=== PATIENT | female | born 1945 | race Two or more races ===

== ENCOUNTER 2023-06-08 12:00 | Emergency (ER) | payer OTHER ==
[~2023-06-08] VITALS: Ht 152.4 cm; Wt 63.5 kg
== END 2023-06-08 19:29 ==
LOC: ER 12:00
DX: N39.0 Urinary tract infection, site not specified (principal); R30.0 Dysuria; I10 Essential (primary) hypertension; Z88.2 Allergy status to sulfonamides

== ENCOUNTER 2025-02-18 11:15 | Emergency (ER) | payer OTHER ==
[~2025-02-18] VITALS: Ht 162.6 cm; Wt 70.8 kg
[2025-02-18] MEDS ORDERED: VALSARTAN160 MG PO (12:11)
[2025-02-18] MEDS ORDERED: KETOROLAC TROMETHAMINE 60 MG VIAL IM ONE (12:39)
[2025-02-18] MEDS ORDERED: KETOROLAC TROMETHAMINE 60 MG VIAL IM STA (12:55)
[2025-02-18 13:24] LABS: PH,URINE 6.5 (5.0-8.0); URINE APPEARANCE Clear; URINE BILIRRUBIN Negative (NEGATIVE); URINE BLOOD Negative; URINE COLOR Yellow; URINE GLUCOSE Negative (NEGATIVE); URINE KETONE Negative (NEGATIVE); URINE LEUKOCYTE Negative; URINE NITRATE Negative; URINE PROTEIN Negative (NEGATIVE)
[2025-02-18 13:25] LABS: HEMATOCRIT 39.2 % (36.0-45.00); HEMOGLOBIN 13.1 g/dL (12.0-15.00); MEAN CELL VOLUME 82.3 fL (80.00-100.00); MEAN CORPUSCULAR HEMOGLOBIN 27.4 pg (27.00-32.0); MEAN CORPUSCULAR HGB CONC 33.3 g/dl (32.0-36.0); PLATELET COUNT 194 K/uL (150-450); RED BLOOD COUNT 4.77 M/uL (4.00-6.00); RED CELL DISTRIBUTION WIDTH 15.3 % (11.5-14.5)
[2025-02-18 13:28] LABS: URINE BACTERIA 673.1 uL (0.0-1933); URINE EPITHELIAL CELLS 106.7 uL (0.0-38.8); URINE RBC 24.8 uL (0.0-20.8); URINE WBC 6.3 uL (0.0-23.2)
[2025-02-18 13:52] LABS: CALCIUM 9.3 mg/dL (8.5-10.1); CREATININE SERUM 0.74 mg/dL (0.55-1.02); GFR 75.71; POTASSIUM 3.97 mEq/L (3.5-5.1)
[2025-02-18] MEDS ORDERED: METRONIDAZOLE500 MG PO (16:58)
[2025-02-18] MEDS ORDERED: PEPCID AC20 MG PO (16:58)
[2025-02-18] MEDS ORDERED: CIPRO500 MG PO (16:58)
[2025-02-18] MEDS ORDERED: PROBIOTIC1 EAC2 PO (16:58)
== END 2025-02-18 17:08 | disposition home or self-care (01) ==
LOC: ER 11:16
PROVIDERS: General Practice
DX: K57.90 Diverticulosis of intestine, part unspecified, without perforation or abscess without bleeding (principal); M54.50 Low back pain, unspecified; R10.9 Unspecified abdominal pain; I10 Essential (primary) hypertension; Z88.2 Allergy status to sulfonamides
CPT/HCPCS: 36415; 74176; 96372; 99284; J1885